=== PATIENT | female | born 1950 | race Two or more races ===

== ENCOUNTER 2023-01-28 16:43 | Emergency (ER) | payer MEDICARE, OTHER ==
[~2023-01-28] VITALS: Ht 152.4 cm; Wt 74.8 kg
[2023-01-28] MEDS ORDERED: NAPR-1009 PO (18:28)
[2023-01-28 19:03] VITALS: BP 151/88; TEMP 98.5; O2SAT 97
== END 2023-01-28 19:03 | disposition home or self-care (01) ==
LOC: ER 16:45
DX: S92.354A Nondisplaced fracture of fifth metatarsal bone, right foot, initial encounter for closed fracture (principal); R07.89 Other chest pain; E11.9 Type 2 diabetes mellitus without complications; Z79.899 Other long term (current) drug therapy; X50.1XXA Overexertion from prolonged static or awkward postures, initial encounter; Y93.89 Activity, other specified; Y92.89 Other specified places as the place of occurrence of the external cause; Y99.8 Other external cause status
CPT/HCPCS: 71045; 73630; A4663